=== PATIENT | female | born 2005 | race Two or more races ===

== ENCOUNTER 2025-01-11 17:33 | Emergency (ER) | payer SELFPAY ==
[2025-01-11 17:35] VITALS: BMI 18.5
[2025-01-11 18:22] VITALS: BP 111/68; PULSE 68; RESP 18; TEMP 36.9; O2SAT 99
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
== END 2025-01-11 19:42 | disposition home or self-care (01) ==
LOC: SERX 19:35
PROVIDERS: Emergency Provider Emergency Medicine; PCP Physician Assistant
DX: S80.01XA Contusion of right knee, initial encounter (principal); S40.021A Contusion of right upper arm, initial encounter; V89.2XXA Person injured in unspecified motor-vehicle accident, traffic, initial encounter
CPT/HCPCS: 99281